=== PATIENT | male | born 1990 | race Caucasian/White ===

== ENCOUNTER 2024-06-25 08:44 | Emergency (ER) | payer BC, SELFPAY ==
[2024-06-25] VITALS (13 sets, daily range): BP systolic 126–161; BP diastolic 75–85; PULSE 65–76; RESP 7–20; TEMP 36.8–36.9; O2SAT 99–100; BMI 23.7
--- NOTE | 2024-06-25 08:58 | ED.ABDPAIN ---
HPI - Abdominal Pain General Chief Complaint: Abdominal Pain Stated Complaint: pancreatitis Time Seen by Provider: 06/25/24 08:53 History of Present Illness HPI narrative: 34-year-old male with history of Pat fundoplication and also gallbladder removal both done in [facility] 1 or 2 years ago, no longer taking regular antacids, complains of 2 days duration left upper quadrant abdominal discomfort. He tried [id number] liquid white generic r[employer] antacid, which did not help his symptoms. No nausea or vomiting. No fevers or chills. No injury or trauma or new activities. He had 3 beers a few days ago, otherwise no recent alcohol use, no recent NSAID use. No prior known kidney stones, no painful urination, no frequency of urination, no change in urine color. No diarrhea, no black or red stools. No history of colitis or diverticulitis recalled. Social history: Moved to [facility] April 2024, prior primary and GI/surgery healthcare in [facility]. Related Data Previous Rx's Medication Instructions Recorded pantoprazole 20 mg tablet,delayed 20 mg PO DAILY #30 tabs 06/25/24 release Allergies Allergy/AdvReac Type Severity Reaction Status Date / Time No Known Drug Allergies Allergy Verified 06/25/24 08:54 Review of Systems Review of Systems Narrative: see HPI Exam Narrative Exam Narrative: GENERAL: Well-developed patient, in mild distress. HEAD: Atraumatic. Normocephalic. EYES: Pupils equal round and reactive. Extraocular motions intact. No scleral icterus. No injection or drainage. ENT: Nose without bleeding, purulent drainage. Throat without erythema, tonsillar hypertrophy or exudate. Airway patent. NECK: Trachea midline. Non tender CARDIOVASCULAR: Regular rate and rhythm without murmurs, gallops, or rubs. RESPIRATORY: Clear to auscultation. Breath sounds equal bilaterally. No wheezes, rales, or rhonchi. GASTROINTESTINAL: Abdomen nondistended, mild tenderness left upper quadrant, more so than epigastrium, no obvious ventral hernias, no guarding or rebound tenderness, normal bowel tones EXTREMITIES: No edema or joint tenderness. BACK: Nontender without deformity or crepitance. No flank tenderness. NEURO: AOx3. Motor functions grossly nonfocal SKIN: No rash or erythema of visible areas Initial Vital Signs Initial Vital Signs: Vital Signs Pulse Rate 76 06/25/24 08:50 Pulse Oximetry 100 06/25/24 08:50 Course Orders Ordered: Discontinued Medications Al Hydrox/Mg Hydrox/Simethicone 20 ml/ Lidocaine HCl 15 ml 0 ml PO NOW ONE Stop: 06/25/24 09:09 Last Admin: 06/25/24 09:20 Dose: 35 ml Documented By: YINKA Hydromorphone HCl (Hydromorphone 0.5 Mg Inj) 0.5 mg IV NOW ONE Stop: 06/25/24 10:22 Last Admin: 06/25/24 10:52 Dose: 0.5 mg Documented By: YINKA Ondansetron HCl (Ondansetron 4 Mg/2 Ml Inj) 4 mg IV NOW ONE Stop: 06/25/24 10:22 Last Admin: 06/25/24 10:52 Dose: 4 mg Documented By: YINKA Pantoprazole Sodium (Pantoprazole 40 Mg Vial) 40 mg IV NOW ONE Stop: 06/25/24 09:12 Last Admin: 06/25/24 09:21 Dose: 40 mg Documented By: YINKA Vital Signs Vital signs: Vital Signs - 8 hr 06/25/24 08:50 06/25/24 08:51 06/25/24 08:51 Temperature Pulse Rate 76 72 Respiratory Rate Blood Pressure 138/76 Pulse Oximetry 100 99 Oxygen Delivery Method 06/25/24 08:54 06/25/24 09:00 06/25/24 09:00 Temperature 98.3 F Pulse Rate 65 71 Respiratory Rate 16 Blood Pressure 138/76 133/76 Pulse Oximetry 99 99 Oxygen Delivery Method Room Air 06/25/24 09:31 06/25/24 09:52 06/25/24 09:52 Temperature Pulse Rate 74 68 Respiratory Rate 18 Blood Pressure 131/79 Pulse Oximetry 100 100 Oxygen Delivery Method 06/25/24 10:00 06/25/24 10:00 06/25/24 10:14 Temperature Pulse Rate 66 Respiratory Rate 20 Blood Pressure 126/76 161/80 H Pulse Oximetry 100 Oxygen Delivery Method 06/25/24 10:14 06/25/24 10:30 06/25/24 10:30 Temperature Pulse Rate 68 68 Respiratory Rate 16 14 Blood Pressure 148/77 H Pulse Oximetry 99 99 Oxygen Delivery Method 06/25/24 10:59 06/25/24 10:59 06/25/24 11:00 Temperature Pulse Rate 66 67 Respiratory Rate 16 7 L Blood Pressure 133/85 Pulse Oximetry 99 99 Oxygen Delivery Method 06/25/24 11:00 Temperature Pulse Rate Respiratory Rate Blood Pressure 143/75 H Pulse Oximetry Oxygen Delivery Method MDM - Abdominal Pain Lab Data Attestation: I reviewed the patient's lab results. Lab results narrative: White blood cell count 8000, hemoglobin 14, platelets adequate. Basic metabolic panel unremarkable. Liver functions and lipase normal. 06/25/24 08:56 06/25/24 08:56 Labs: Lab Results 06/25/24 Range/Units 08:56 WBC 8.0 (4.5-11.0) X10^3/uL RBC 4.21 L (4.5-5.9) X10^6/uL Hgb 14.0 (13.5-17.5) g/dL Hct 41.0 (41-53) % MCV 97.3 (80-100) fL MCH 33.3 (26-34) PG MCHC 34.2 (30-36) % RDW 13.2 (11.6-14.8) % Plt Count 287 (150-400) X10^3/uL Neut % (Auto) 66.4 (50-75) % Lymph % (Auto) 25.7 (25-40) % Page % (Auto) 6.6 (3-14) % Eos % (Auto) 0.9 L (2-4) % Baso % (Auto) 0.4 (0-2) % Neut # (Auto) 5300 (7522-0842) /uL Lymph # (Auto) 2000 (6906-8856) /uL Page # (Auto) 500 (0-900) /uL Eos # (Auto) 100 (0-450) /uL Baso # (Auto) 0 (0-100) /uL Sodium 136 L (137-145) mmol/L Potassium 4.2 (3.4-5.1) mmol/L Chloride 105 (98-107) mmol/L Carbon Dioxide 24 (22-32) mmol/L BUN 11 (9-20) mg/dL Creatinine 0.62 L (0.66-1.25) mg/dL Estimated GFR > 60 (>60) mL/min BUN/Creatinine Ratio 17.7 (6-22) Glucose 136 H (70-100) mg/dL Calcium 9.2 (8.4-10.2) mg/dL Total Bilirubin 0.8 (0.2-1.3) mg/dL AST 40 (17-59) IU/L ALT 36 (<50) IU/L Alkaline Phosphatase 39 (38-126) U/L Total Protein 6.8 (6.3-8.2) g/dL Albumin 4.5 (3.5-5.0) g/dL Globulin 2.3 (1.7-4.1) g/dL Albumin/Globulin Ratio 2.0 (1.0-2.8) Lipase 53 (23-300) U/L Point of care testing: Urine Dip Bedside Urine Glucose Negative Bedside Urine Bilirubin - Negative Bedside Urine Ketone - Negative Urine Specific [employer] 1.005 Bedside Urine Occult Blood - Negative Bedside Urine pH 7.5 Bedside Urine Protein - Negative Bedside Urine Urobilinogen - Negative Bedside Urine Nitrite - Negative Bedside Urine Leukocytes - Negative Esterase Imaging Data Chest x-ray: Radiologist's Impression: [address] [address] XRay Report Signed Patient: Baldo Uribe MR#: [id number] : 1990 Acct:[id number] Age/Sex: 34 / M Date of Service: 06/25/24 Loc: ED Accession Number: [id number] Procedure: XR chest 2V Ordering Provider: Jon Garcia MD PROCEDURE: XR CHEST 2V INDICATIONS: upper abd chest pain, hx Pat fundoplic TECHNIQUE: 2 views of the chest were acquired. COMPARISON: None. FINDINGS: Surgical changes and devices: None. Lungs and pleura: Lungs are clear. No pleural effusions or pneumothorax. Mediastinum: Mediastinal contours are normal. Heart size is normal. Bones and chest wall: No suspicious bony abnormalities. Soft tissues appear unremarkable. IMPRESSION: No acute cardiopulmonary abnormality is seen. Dictated by: Sagar Todd M.D. on 06/25/2024 at 9:39 Approved by: Sagar Todd M.D. on 06/25/2024 at 9:39 CT chest abdomen and pelvis with IV contrast: Radiologist's Impression: Close Chest/Abdomen/Pelvis CT (Signed) Evan Ro - 06/25/24 Chest X-Ray (Signed) Sagar Todd - 06/25/[address] [address] [address] Scan Report Signed Patient: Baldo Uribe MR#: [id number] : 1990 Acct:[id number] Age/Sex: 34 / M Date of Service: 06/25/24 Loc: ED Accession Number: [id number] Procedure: CT chest abd pel w con Ordering Provider: Jon Garcia MD PROCEDURE: CT CHEST ABD PEL W CON INDICATIONS: LUQ abd pain, prior Pat fundoplication TECHNIQUE: After the administration of intravenous contrast, 5 mm thick sections acquired from the lung apices to the symphysis. 5 mm coronal and sagittal reformats were performed, with additional 7 mm MIP reformats through the lungs. For radiation dose reduction, the following was used: automated exposure control, adjustment of mA and/or kV according to patient size. COMPARISON: None. FINDINGS: Image quality: Excellent. CHEST: Lower Neck: No enlarged lymph nodes. Thyroid: No thyroid nodules which require sonographic follow up, per consensus guidelines. Axillae: No enlarged lymph nodes. Chest Wall: Unremarkable. Lungs and Pleura: No pneumothorax or pleural effusions. Accessory fissure in the right lower lobe with perifissural nodule measuring 5 millimeters, likely an intrapulmonary lymph node (2/208). Scattered pulmonary micro nodules measuring 3 millimeters or less. No suspicious pulmonary nodules. Heart: Heart size is normal. No pericardial effusion. Thoracic Vessels: The aorta and pulmonary arteries demonstrate normal size. Mediastinum and Surekha: No enlarged lymph nodes. Esophagus: No wall thickening. No hiatal hernia. ABDOMEN: Liver: No solid mass. Gallbladder: Surgically absent. Biliary ducts: No biliary dilation. Pancreas: No ductal dilation. Spleen: Size is within normal limits. Adrenal Glands: No adrenal nodules. Kidneys and Ureters: No hydronephrosis. No solid mass. No complex renal cystic lesion which requires follow up. Stomach and Bowel: Prior Driss fundoplication. Normal colonic caliber, without significant wall thickening. Normal appendix. Few small diverticula without evidence of diverticulitis. Peritoneum: No abnormal intraperitoneal fluid. No free air. Ventral Wall: No significant ventral hernia. Abdominal Nodes: No retroperitoneal or mesenteric adenopathy by size criteria. Vessels: Aorta and inferior vena cava are normal in size. PELVIS: Pelvic Organs: Unremarkable. Bladder: No bladder wall thickening, accounting for underdistention. Pelvic Nodes: No enlarged lymph nodes. Miscellaneous: No inguinal hernias are seen. Bones: No aggressive osseous abnormality. IMPRESSION: 1. No acute findings within the chest, abdomen or pelvis. 2. Prior Pat fundoplication. Status post cholecystectomy. 3. Few diverticula without evidence of acute diverticulitis. 4. Scattered pulmonary micro nodules measuring 3 millimeters or less, nonspecific. No suspicious pulmonary nodules. Dictated by: Evan Ro M.D. on 06/25/2024 at 11:17 Approved by: Evan Ro M.D. on 06/25/2024 at 11:25 [facility] Narrative Medical decision making narrative: 34-year-old male with history of Pat fundoplication and remote cholecystectomy 1 or 2 years ago in [place], now with 2 days duration left upper quadrant abdominal pain, no trauma. Afebrile, sirs screen negative. Mild tenderness epigastrium and left upper quadrant without distention, no guarding or rebound tenderness. DDx consider complication of Pat fundoplication, PUD, pancreatitis, choledocholithiasis, colitis, other. Screening chest x-ray ordered, labs pending. Labs unremarkable. Chest x-ray showed no acute changes, see radiology report. IV Protonix, GI cocktail, patient does not feel any better. We discussed imaging, he would like to proceed. CT chest abdomen and pelvis imaging with IV contrast. Keep NPO 2225, patient now would like pain medications, IV Dilaudid/Zofran. CT studies to be performed. Keep NPO. CT chest abdomen pelvis IV contrast, shows Pat repair, uncomplicated. No acute changes chest abdomen and pelvis. Incidental micro pulmonary nodules noted. CT report given to patient with discussion of these findings, importance of pulmonary nodule follow up discussed. Advised restart of PPI, we will send prescription for Protonix, he will follow up with GI at [facility]. Return precautions discussed. Discharged home, stable/improved Discharge Plan Departure Patient Disposition: Home Clinical Impression: Acute upper abdominal pain, History of Pat fundoplication, Multiple pulmonary nodules, Diverticulosis Activity Restrictions/Additional Instructions: Upper abdominal discomfort, history of remote cholecystectomy gallbladder removal, history of remote Pat fundoplication, no longer taking antacids regularly. Recent upper left abdominal discomfort. No response today to GI cocktail antacid/lidocaine swallow. CT chest abdomen and pelvis imaging was done, no acute changes noted. You did have incidental pulmonary micro nodules that will need further follow up as an outpatient with your regular doctor. Restart antacid, prescription pantoprazole/Protonix sent to your pharmacy. Follow up with Gastroenterology in [facility] as anticipated. Return to this/nearest emergency department for any change worsening symptoms or any concerns prior Prescriptions: New pantoprazole 20 mg tablet,delayed release (DR/EC) 20 mg PO DAILY Qty: 30 0RF Stand Alone Forms: Patient Portal/API/Survey
--- NOTE | 2024-06-25 09:09 | DI.RAD.S_ITS ---
PROCEDURE: XR CHEST 2V INDICATIONS: upper abd chest pain, hx Pat fundoplic TECHNIQUE: 2 views of the chest were acquired. COMPARISON: None. FINDINGS: Surgical changes and devices: None. Lungs and pleura: Lungs are clear. No pleural effusions or pneumothorax. Mediastinum: Mediastinal contours are normal. Heart size is normal. Bones and chest wall: No suspicious bony abnormalities. Soft tissues appear unremarkable. IMPRESSION: No acute cardiopulmonary abnormality is seen. Dictated by: Sagar Todd M.D. on 06/25/2024 at 9:39 Approved by: Sagar Todd M.D. on 06/25/2024 at 9:39
[2024-06-25] MEDS: MAG HYDROX/ALUMINUM/SIMETH SUS 20 ML, LIDOCAINE VISCOUS 2% 15 ML PO (09:20)
[2024-06-25] MEDS: PANTOPRAZOLE 40 MG VIAL IV (09:21)
[2024-06-25 09:24] LABS: Add Manual Diff / Slide Review NO; Basophils Absolute Auto 0 /uL (0-100); Basophils Percent Auto 0.4 % (0-2); Eosinophils Absolute Auto 100 /uL (0-450); Eosinophils Percent Auto 0.9 % (2-4); Lymphocytes Absolute Auto 2000 /uL (1100-4500); Lymphocytes Percent Auto 25.7 % (25-40); Mean Corpuscular HGB Conc 34.2 % (30-36); Mean Corpuscular Hemoglobin 33.3 PG (26-34); Mean Corpuscular Volume 97.3 fL (80-100); Monocytes Absolute Auto 500 /uL (0-900); Monocytes Percent Auto 6.6 % (3-14); Neutrophils Absolute Auto 5300 /uL (1500-7000); Neutrophils Percent Auto 66.4 % (50-75); Platelet Count 287 X10^3/uL (150-400); Red Blood Cell Count 4.21 X10^6/uL (4.5-5.9); Red Cell Distribution Width 13.2 % (11.6-14.8)
[2024-06-25 09:31] LABS: Alanine Aminotransferase 36 IU/L (<50); Albumin 4.5 g/dL (3.5-5.0); Alkaline Phosphatase 39 U/L (38-126); Aspartate Aminotransferase 40 IU/L (17-59); BUN Creatinine Ratio 17.7 (6-22); Bilirubin Total 0.8 mg/dL (0.2-1.3); Blood Urea Nitrogen 11 mg/dL (9-20); Calcium 9.2 mg/dL (8.4-10.2); Carbon Dioxide 24 mmol/L (22-32); Chloride 105 mmol/L (98-107); Estimated Glomerular Filt Rate > 60 mL/min (>60); Globulin 2.3 g/dL (1.7-4.1); Glucose 136 mg/dL (70-100); HEMOLYSIS < 15 (0-50); Lipase 53 U/L (23-300); Potassium 4.2 mmol/L (3.4-5.1); Sodium 136 mmol/L (137-145); Total Protein 6.8 g/dL (6.3-8.2)
--- NOTE | 2024-06-25 09:51 | DI.CT.S_ITS ---
PROCEDURE: CT CHEST ABD PEL W CON INDICATIONS: LUQ abd pain, prior Pat fundoplication TECHNIQUE: After the administration of intravenous contrast, 5 mm thick sections acquired from the lung apices to the symphysis. 5 mm coronal and sagittal reformats were performed, with additional 7 mm MIP reformats through the lungs. For radiation dose reduction, the following was used: automated exposure control, adjustment of mA and/or kV according to patient size. COMPARISON: None. FINDINGS: Image quality: Excellent. CHEST: Lower Neck: No enlarged lymph nodes. Thyroid: No thyroid nodules which require sonographic follow up, per consensus guidelines. Axillae: No enlarged lymph nodes. Chest Wall: Unremarkable. Lungs and Pleura: No pneumothorax or pleural effusions. Accessory fissure in the right lower lobe with perifissural nodule measuring 5 millimeters, likely an intrapulmonary lymph node (2/208). Scattered pulmonary micro nodules measuring 3 millimeters or less. No suspicious pulmonary nodules. Heart: Heart size is normal. No pericardial effusion. Thoracic Vessels: The aorta and pulmonary arteries demonstrate normal size. Mediastinum and Surekha: No enlarged lymph nodes. Esophagus: No wall thickening. No hiatal hernia. ABDOMEN: Liver: No solid mass. Gallbladder: Surgically absent. Biliary ducts: No biliary dilation. Pancreas: No ductal dilation. Spleen: Size is within normal limits. Adrenal Glands: No adrenal nodules. Kidneys and Ureters: No hydronephrosis. No solid mass. No complex renal cystic lesion which requires follow up. Stomach and Bowel: Prior Driss fundoplication. Normal colonic caliber, without significant wall thickening. Normal appendix. Few small diverticula without evidence of diverticulitis. Peritoneum: No abnormal intraperitoneal fluid. No free air. Ventral Wall: No significant ventral hernia. Abdominal Nodes: No retroperitoneal or mesenteric adenopathy by size criteria. Vessels: Aorta and inferior vena cava are normal in size. PELVIS: Pelvic Organs: Unremarkable. Bladder: No bladder wall thickening, accounting for underdistention. Pelvic Nodes: No enlarged lymph nodes. Miscellaneous: No inguinal hernias are seen. Bones: No aggressive osseous abnormality. IMPRESSION: 1. No acute findings within the chest, abdomen or pelvis. 2. Prior Pat fundoplication. Status post cholecystectomy. 3. Few diverticula without evidence of acute diverticulitis. 4. Scattered pulmonary micro nodules measuring 3 millimeters or less, nonspecific. No suspicious pulmonary nodules. Dictated by: Evan Ro M.D. on 06/25/2024 at 11:17 Approved by: Evan Ro M.D. on 06/25/2024 at 11:25
[2024-06-25] MEDS: ONDANSETRON 4 MG/2 ML INJ IV (10:52)
[2024-06-25] MEDS: HYDROMORPHONE 0.5 MG INJ IV (10:52)
== END 2024-06-25 11:48 | disposition home or self-care (01) ==
PROVIDERS: Emergency Provider Emergency Medicine
DX: R10.12 Left upper quadrant pain (principal); Z90.49 Acquired absence of other specified parts of digestive tract; Z98.890 Other specified postprocedural states; R91.8 Other nonspecific abnormal finding of lung field; K57.90 Diverticulosis of intestine, part unspecified, without perforation or abscess without bleeding
CPT/HCPCS: 36415; 71046; 71260; 74177; 80053; 81003; 83690; 85025; 96374; 96375; 99284; 99285; J1171; J2405; J2470; Q9967

== ENCOUNTER 2024-12-21 06:05 | Emergency (ER) | payer BC, SELFPAY ==
[2024-12-21 06:18] VITALS: BP 130/71; PULSE 82; RESP 17; TEMP 36.6; O2SAT 98; BMI 23.7
[2024-12-21 06:25] VITALS: PULSE 82; O2SAT 99
[2024-12-21 06:29] LABS: Add Manual Diff / Slide Review NO; Basophils Absolute Auto 0 /uL (0-100); Basophils Percent Auto 0.4 % (0-2); Eosinophils Absolute Auto 0 /uL (0-450); Eosinophils Percent Auto 0.3 % (2-4); Hematocrit 41.6 % (41-53); Hemoglobin 14.3 g/dL (13.5-17.5); Lymphocytes Absolute Auto 1200 /uL (1100-4500); Lymphocytes Percent Auto 9.1 % (25-40); Mean Corpuscular HGB Conc 34.5 % (30-36); Mean Corpuscular Hemoglobin 33.6 PG (26-34); Mean Corpuscular Volume 97.3 fL (80-100); Monocytes Absolute Auto 600 /uL (0-900); Monocytes Percent Auto 4.7 % (3-14); Neutrophils Absolute Auto 10800 /uL (1500-7000); Neutrophils Percent Auto 85.5 % (50-75); Platelet Count 301 X10^3/uL (150-400); Red Blood Cell Count 4.27 X10^6/uL (4.5-5.9); Red Cell Distribution Width 13.5 % (11.6-14.8); White Blood Cell Count 12.7 X10^3/uL (4.5-11.0)
[2024-12-21 06:30] VITALS: BP 117/62; PULSE 78; O2SAT 97
--- NOTE | 2024-12-21 06:31 | ED.GENADULT ---
HPI - General Adult <No Laurent MD - Last Filed: 12/22/24 04:16> General Chief complaint: Abdominal Pain Stated complaint: Vomiting, nausea, pain, had gastric surgery 3 yrs Time Seen by Provider: 12/21/24 06:23 Source: patient Mode of arrival: Ambulatory History of Present Illness HPI narrative: 34-year-old young man with a history of bipolar disorder, Pat fundoplication with concurrent cholecystectomy approximately 3 years ago presents after being awoken abruptly from sleep 3:00 a.m. this morning with severe abdominal pain associated with vomiting and diarrhea. Continues to have crampy mid abdominal pain. No fevers, there was no blood in either the emesis or the diarrhea earlier this evening. He has never had similar findings. No headaches or palpitations. Yesterday he was at his baseline with no symptoms whatsoever Related Data Previous Rx's ?Medication ?Instructions ?Recorded pantoprazole 20 mg tablet,delayed 20 mg PO DAILY #30 tabs 06/25/24 release hydrocodone 5 mg-acetaminophen 325 1 tab PO Q6H PRN pain #7 tabs 12/21/24 mg tablet ondansetron 4 mg disintegrating 4 mg PO Q6H PRN nausea and 12/21/24 tablet vomiting #20 tabs pantoprazole 40 mg tablet,delayed 40 mg PO DAILY #30 tabs 12/21/24 release (Protonix) sucralfate 1 gram tablet (Carafate) 1 g PO QAC #20 tabs 12/21/24 Allergies Allergy/AdvReac Type Severity Reaction Status Date / Time No Known Drug Allergies Allergy Verified 06/25/24 08:54 Review of Systems <No Laurent MD - Last Filed: 12/22/24 04:16> Review of Systems Narrative: Pertinent positive and negative findings as per HPI Patient History <No Laurent MD - Last Filed: 12/22/24 04:16> Medical History (Updated 12/21/24 @ 08:09 by Yoshi Lomax MD) Bipolar disorder Surgical History (Updated 12/21/24 @ 06:33 by No Laurent MD) History of cholecystectomy History of Pat fundoplication tobacco type: vaping Exam <No Laurent MD - Last Filed: 12/22/24 04:16> Initial Vital Signs Initial Vital Signs: Vital Signs Temperature 97.8 F 12/21/24 06:18 Pulse Rate 82 12/21/24 06:18 Respiratory Rate 17 12/21/24 06:18 Blood Pressure 130/71 12/21/24 06:18 Pulse Oximetry 98 12/21/24 06:18 Oxygen Delivery Method Room Air 12/21/24 06:18 General: Healthy appearing, in moderate pain but Able to give a complete and coherent history. Well-nourished well-developed HEENT: Moist mucous membranes, normal sclera with reactive pupils, Respiratory: Lungs are clear to auscultation, no wheezing no rales no rhonchi. Full and symmetrical air movement Cardiac: Regular rate and rhythm no murmurs no bruits Abdomen: Soft, tender in the periumbilical to epigastric tenderness. Minor right flank pain. He does not have an acute surgical abdomen Skin: Warm and dry, no rashes Neurologic: Grossly neurologically intact with no obvious asymmetries or abnormalities Extremities: No trauma, well perfused Psych: Cooperative, appropriate insight and affect <Yoshi Lomax MD - Last Filed: 12/21/24 08:24> Initial Vital Signs Initial Vital Signs: Vital Signs Temperature 97.8 F 12/21/24 06:18 Pulse Rate 82 12/21/24 06:18 Respiratory Rate 17 12/21/24 06:18 Blood Pressure 130/71 12/21/24 06:18 Pulse Oximetry 98 12/21/24 06:18 Oxygen Delivery Method Room Air 12/21/24 06:18 Course <No Laurent MD - Last Filed: 12/22/24 04:16> Orders Ordered: Discontinued Medications Acetaminophen (Acetaminophen 325 Mg Tablet) 975 mg PO NOW ONE Stop: 12/21/24 08:06 Last Admin: 12/21/24 08:11 Dose: 975 mg Documented By: WALTER Al Hydrox/Mg Hydrox/Simethicone 20 ml/ Lidocaine HCl 15 ml 0 ml PO NOW ONE Stop: 12/21/24 07:31 Last Admin: 12/21/24 07:37 Dose: 35 ml Documented By: WALTER Sodium Chloride (Normal Saline 0.9%) 1,000 mls @ 1,000 mls/hr IV BOLUS ONE Stop: 12/21/24 08:30 Last Admin: 12/21/24 07:38 Dose: 1,000 mls/hr Documented By: WALTER Ondansetron HCl (Ondansetron 4 Mg/2 Ml Inj) 4 mg IV NOW PRN PRN Reason: Nausea And Vomiting Ondansetron HCl (Ondansetron 4 Mg Odt) 4 mg PO NOW PRN PRN Reason: Nausea And Vomiting Pantoprazole Sodium (Pantoprazole 40 Mg Vial) 40 mg IV NOW ONE Stop: 12/21/24 07:31 Last Admin: 12/21/24 07:37 Dose: 40 mg Documented By: WALTER Vital Signs Vital signs: Vital Signs - 8 hr 12/21/24 06:18 Temperature 97.8 F Pulse Rate 82 Respiratory Rate 17 Blood Pressure 130/71 Pulse Oximetry 98 Oxygen Delivery Method Room Air <Yoshi Lomax MD - Last Filed: 12/21/24 08:24> Orders Ordered: Discontinued Medications Acetaminophen (Acetaminophen 325 Mg Tablet) 975 mg PO NOW ONE Stop: 12/21/24 08:06 Last Admin: 12/21/24 08:11 Dose: 975 mg Documented By: WALTER Al Hydrox/Mg Hydrox/Simethicone 20 ml/ Lidocaine HCl 15 ml 0 ml PO NOW ONE Stop: 12/21/24 07:31 Last Admin: 12/21/24 07:37 Dose: 35 ml Documented By: WALTER Sodium Chloride (Normal Saline 0.9%) 1,000 mls @ 1,000 mls/hr IV BOLUS ONE Stop: 12/21/24 08:30 Last Admin: 12/21/24 07:38 Dose: 1,000 mls/hr Documented By: WALTER Ondansetron HCl (Ondansetron 4 Mg/2 Ml Inj) 4 mg IV NOW PRN PRN Reason: Nausea And Vomiting Ondansetron HCl (Ondansetron 4 Mg Odt) 4 mg PO NOW PRN PRN Reason: Nausea And Vomiting Pantoprazole Sodium (Pantoprazole 40 Mg Vial) 40 mg IV NOW ONE Stop: 12/21/24 07:31 Last Admin: 12/21/24 07:37 Dose: 40 mg Documented By: WALTER Vital Signs Vital signs: Vital Signs - 8 hr 12/21/24 06:18 Temperature 97.8 F Pulse Rate 82 Respiratory Rate 17 Blood Pressure 130/71 Pulse Oximetry 98 Oxygen Delivery Method Room Air Medical Decision Making <No Laurent MD - Last Filed: 12/22/24 04:16> Lab Data 12/21/24 06:22 12/21/24 06:22 Labs: Lab Results 12/21/24 Range/Units 06:22 WBC 12.7 H (4.5-11.0) X10^3/uL RBC 4.27 L (4.5-5.9) X10^6/uL Hgb 14.3 (13.5-17.5) g/dL Hct 41.6 (41-53) % MCV 97.3 (80-100) fL MCH 33.6 (26-34) PG MCHC 34.5 (30-36) % RDW 13.5 (11.6-14.8) % Plt Count 301 (150-400) X10^3/uL Neut % (Auto) 85.5 H (50-75) % Lymph % (Auto) 9.1 L (25-40) % [place] % (Auto) 4.7 (3-14) % Eos % (Auto) 0.3 L (2-4) % Baso % (Auto) 0.4 (0-2) % Neut # (Auto) 45433 H (4777-2090) /uL Lymph # (Auto) 1200 (0345-0885) /uL [place] # (Auto) 600 (0-900) /uL Eos # (Auto) 0 (0-450) /uL Baso # (Auto) 0 (0-100) /uL Sodium 139 (137-145) mmol/L Potassium 4.3 (3.4-5.1) mmol/L Chloride 105 (98-107) mmol/L Carbon Dioxide 26 (22-32) mmol/L BUN 6 L (9-20) mg/dL Creatinine 0.74 (0.66-1.25) mg/dL Estimated GFR > 60 (>60) mL/min BUN/Creatinine Ratio 8.1 (6-22) Glucose 103 H (70-99) mg/dL Calcium 9.5 (8.4-10.2) mg/dL Total Bilirubin 1.1 (0.2-1.3) mg/dL AST 36 (17-59) IU/L ALT 26 (<50) IU/L Alkaline Phosphatase 46 (38-126) U/L Total Protein 7.3 (6.3-8.2) g/dL Albumin 4.8 (3.5-5.0) g/dL Globulin 2.5 (1.7-4.1) g/dL Albumin/Globulin Ratio 1.9 (1.0-2.8) Lipase 40 (23-300) U/L MDM Narrative Medical decision making narrative: CC: Acute onset abdominal pain with associated nausea and vomiting Complicating co-morbidities: Prior Pat fundoplication, bipolar disorder Data collected from: patient Differential considered: Internal hernia, bowel obstruction, acute appendicitis, pancreatitis Exam documented above, pertinent findings include: Appears uncomfortable, heart and lungs are benign, upper abdomen to the left upper quadrant tenderness mild right flank pain Lab Test results independently reviewed as above. Pertinent findings: CBC shows mild leukocytosis at 12.7 with 85.5% neutrophils no anemia Independently reviewed EKG: Imaging studies independently reviewed: Consultations: Treatments: Re-evaluations: Discussion: <Yoshi Lomax MD - Last Filed: 12/21/24 08:24> Lab Data Labs: Lab Results 12/21/24 Range/Units 06:22 WBC 12.7 H (4.5-11.0) X10^3/uL RBC 4.27 L (4.5-5.9) X10^6/uL Hgb 14.3 (13.5-17.5) g/dL Hct 41.6 (41-53) % MCV 97.3 (80-100) fL MCH 33.6 (26-34) PG MCHC 34.5 (30-36) % RDW 13.5 (11.6-14.8) % Plt Count 301 (150-400) X10^3/uL Neut % (Auto) 85.5 H (50-75) % Lymph % (Auto) 9.1 L (25-40) % [place] % (Auto) 4.7 (3-14) % Eos % (Auto) 0.3 L (2-4) % Baso % (Auto) 0.4 (0-2) % Neut # (Auto) 09752 H (4475-9080) /uL Lymph # (Auto) 1200 (3703-6729) /uL [place] # (Auto) 600 (0-900) /uL Eos # (Auto) 0 (0-450) /uL Baso # (Auto) 0 (0-100) /uL Sodium 139 (137-145) mmol/L Potassium 4.3 (3.4-5.1) mmol/L Chloride 105 (98-107) mmol/L Carbon Dioxide 26 (22-32) mmol/L BUN 6 L (9-20) mg/dL Creatinine 0.74 (0.66-1.25) mg/dL Estimated GFR > 60 (>60) mL/min BUN/Creatinine Ratio 8.1 (6-22) Glucose 103 H (70-99) mg/dL Calcium 9.5 (8.4-10.2) mg/dL Total Bilirubin 1.1 (0.2-1.3) mg/dL AST 36 (17-59) IU/L ALT 26 (<50) IU/L Alkaline Phosphatase 46 (38-126) U/L Total Protein 7.3 (6.3-8.2) g/dL Albumin 4.8 (3.5-5.0) g/dL Globulin 2.5 (1.7-4.1) g/dL Albumin/Globulin Ratio 1.9 (1.0-2.8) Lipase 40 (23-300) U/L Imaging Data CT scan - abdomen/pelvis: Radiologist's Impression: [place] [address] CT Scan Report Signed Patient: Baldo Uribe MR#: [id number] : 1990 Acct:[id number] Age/Sex: 34 / M Date of Service: 12/21/24 Loc: ED Accession Number: [id number] Procedure: CT abdomen pelvis w con Ordering Provider: No Laurent MD PROCEDURE: CT ABDOMEN PELVIS W CON INDICATIONS: acute abdominal pain TECHNIQUE: After the administration of intravenous contrast, axial sections acquired from the lung bases to the pubic symphysis. Coronal and sagittal reformats were performed. For radiation dose reduction, the following was used: automated exposure control, adjustment of mA and/or kV according to patient size. COMPARISON: [facility], CT, CT CHEST ABD PEL W CON, 06/25/2024, 10:06. FINDINGS: Image quality: Diagnostic Lower chest: Unremarkable lung bases Normal heart size. Fundoplication changes Liver: Unremarkable Gallbladder and biliary system: Cholecystectomy clips, nondilated Pancreas: No ductal dilation Spleen: Nonenlarged Adrenals: No discrete nodules Kidneys: No solid mass. No hydronephrosis. Vessels and lymph nodes: The main portal vein appears patent. No abdominal aortic aneurysm. No lymphadenopathy by size criteria. Bowel and peritoneum: No acute small bowel obstruction. Moderate fecal loading and rectal gas is present. No drainable abscess or ascites. The appendix appears nondilated Body wall: Unremarkable Pelvis: Under distended urinary bladder. Heterogeneous prostate enhancement, nonspecific, not well assessed on CT Bones: No aggressive appearing osseous abnormality. IMPRESSION: No acute abdominal pelvic abnormality. Moderate fecal loading and rectal gas. No small bowel obstruction. No significant changes from the preliminary report. Dictated by: Kemar Bender M.D. on 12/21/2024 at 7:50 Approved by: Kemar Bender M.D. on 12/21/2024 at 7:53 MDM Narrative Medical decision making narrative: CC: Acute onset abdominal pain with associated nausea and vomiting Complicating co-morbidities: Prior Pat fundoplication, bipolar disorder Data collected from: patient Differential considered: Internal hernia, bowel obstruction, acute appendicitis, pancreatitis Exam documented above, pertinent findings include: Appears uncomfortable, heart and lungs are benign, upper abdomen to the left upper quadrant tenderness mild right flank pain Lab Test results independently reviewed as above. Pertinent findings: CBC shows mild leukocytosis at 12.7 with 85.5% neutrophils no anemia, sodium 139 potassium 4.3 AST 36 ALT 26 lipase 40 Independently reviewed EKG: None indicated at this time, pain is reproducible epigastric palpation Imaging studies independently reviewed: CT abdomen pelvis no acute finding Consultations: None indicated at this time Re-evaluations: 7:28 p.m. patient was sleeping. Awoke him over results. At this time laboratory studies imaging are reassuring. This could be gastritis. Patient states he has had a lot of stressors recently. He had this sent from complication 3 years ago in [facility]. Has had off and on discomfort since then. He does have family doctor to follow up with did referral to GI for EGD. Patient had a fundoplication for esophagitis and reflux. At this time will provide GI cocktail Protonix, patient agrees. Work note will be provided here prescriptions provided. He is not on any antacids. Return precautions reviewed. He desires discharge home. There is periumbilical epigastric tenderness on palpation. 8:08 a.m.. Patient states abdominal pain is better after GI cocktail. He is concerned if the pain returns. Short course of pain medication will be provided. He does have a family doctor to follow up with. Return precautions reviewed. He desires discharge home Discussion: Appropriate for discharge home. Exam is reassuring. Return precautions reviewed. Pain is controlled. Likely gastritis/has reflux due to stress in his life recently. Return precautions reviewed. He desires discharge home. December 21, 2024 at 7:[address] Lomax: Sign-out from Dr. Reza. CT imaging is pending. Pain is controlled this time. Laboratory studies are reassuring. Discharge Plan Departure Patient Disposition: Home Clinical Impression: Abdominal pain Qualifiers: Abdominal location: epigastric Qualified Code(s): R10.13 - Epigastric pain Instructions: DI for Abdominal Pain-Adult Activity Restrictions/Additional Instructions: It is possible that you are developing gastritis/ulcer of the stomach. You will need your family doctor to schedule you to see certified green building engineer for endoscopy your stomach. No fried fatty greasy foods spicy foods or carbonated drinks. Keep well hydrated. Prescriptions have been provided for you and printed for you. Work note has been provided for you. Return if worse if any questions or concerns Prescriptions: New hydrocodone-acetaminophen 5-325 mg tablet 1 tab PO Q6H PRN (Reason: pain) Qty: 7 0RF sucralfate [Carafate] 1 gram tablet 1 g PO QAC Qty: 20 0RF pantoprazole [Protonix] 40 mg tablet,delayed release (DR/EC) 40 mg PO DAILY Qty: 30 0RF ondansetron 4 mg tablet,disintegrating 4 mg PO Q6H PRN (Reason: nausea and vomiting) Qty: 20 0RF No Action pantoprazole 20 mg tablet,delayed release (DR/EC) 20 mg PO DAILY Qty: 30 0RF Stand Alone Forms: Patient Portal/API, Work Release Note
--- NOTE | 2024-12-21 06:37 | DI.CT.S_ITS ---
PROCEDURE: CT ABDOMEN PELVIS W CON INDICATIONS: acute abdominal pain TECHNIQUE: After the administration of intravenous contrast, axial sections acquired from the lung bases to the pubic symphysis. Coronal and sagittal reformats were performed. For radiation dose reduction, the following was used: automated exposure control, adjustment of mA and/or kV according to patient size. COMPARISON: [facility], CT, CT CHEST ABD PEL W CON, 06/25/2024, 10:06. FINDINGS: Image quality: Diagnostic Lower chest: Unremarkable lung bases Normal heart size. Fundoplication changes Liver: Unremarkable Gallbladder and biliary system: Cholecystectomy clips, nondilated Pancreas: No ductal dilation Spleen: Nonenlarged Adrenals: No discrete nodules Kidneys: No solid mass. No hydronephrosis. Vessels and lymph nodes: The main portal vein appears patent. No abdominal aortic aneurysm. No lymphadenopathy by size criteria. Bowel and peritoneum: No acute small bowel obstruction. Moderate fecal loading and rectal gas is present. No drainable abscess or ascites. The appendix appears nondilated Body wall: Unremarkable Pelvis: Under distended urinary bladder. Heterogeneous prostate enhancement, nonspecific, not well assessed on CT Bones: No aggressive appearing osseous abnormality. IMPRESSION: No acute abdominal pelvic abnormality. Moderate fecal loading and rectal gas. No small bowel obstruction. No significant changes from the preliminary report. Dictated by: Kemar Bender M.D. on 12/21/2024 at 7:50 Approved by: Kemar Bender M.D. on 12/21/2024 at 7:53
[2024-12-21 06:40] LABS: Alanine Aminotransferase 26 IU/L (<50); Albumin 4.8 g/dL (3.5-5.0); Albumin Globulin Ratio 1.9 (1.0-2.8); Alkaline Phosphatase 46 U/L (38-126); Aspartate Aminotransferase 36 IU/L (17-59); BUN Creatinine Ratio 8.1 (6-22); Bilirubin Total 1.1 mg/dL (0.2-1.3); Blood Urea Nitrogen 6 mg/dL (9-20); Calcium 9.5 mg/dL (8.4-10.2); Carbon Dioxide 26 mmol/L (22-32); Chloride 105 mmol/L (98-107); Estimated Glomerular Filt Rate > 60 mL/min (>60); Globulin 2.5 g/dL (1.7-4.1); Glucose 103 mg/dL (70-99); HEMOLYSIS < 15 (0-50); Lipase 40 U/L (23-300); Potassium 4.3 mmol/L (3.4-5.1); Sodium 139 mmol/L (137-145); Total Protein 7.3 g/dL (6.3-8.2)
[2024-12-21] MEDS: PANTOPRAZOLE 40 MG VIAL IV (07:37)
[2024-12-21] MEDS: MAG HYDROX/ALUMINUM/SIMETH SUS 20 ML, LIDOCAINE VISCOUS 2% 15 ML PO (07:37)
[2024-12-21] MEDS: SODIUM CHLORIDE 0.9% 1,000 ML 1000 ML IV (07:38)
[2024-12-21] MEDS: ACETAMINOPHEN 325 MG TABLET 975 MG PO (08:11)
[2024-12-21 08:16] VITALS: PULSE 70; RESP 14; O2SAT 97
== END 2024-12-21 08:30 | disposition home or self-care (01) ==
PROVIDERS: Emergency Medicine; Emergency Provider Emergency Medicine
DX: R10.13 Epigastric pain (principal); R19.7 Diarrhea, unspecified; R11.2 Nausea with vomiting, unspecified
CPT/HCPCS: 74177; 80053; 83690; 85025; 96361; 96374; 99284; J2470; Q9967

== ENCOUNTER 2025-01-24 20:34 | Emergency (ER) | payer BC, SELFPAY ==
[2025-01-24 20:49] VITALS: BP 149/95; PULSE 63; RESP 18; TEMP 36.9; O2SAT 99; BMI 23.7
[2025-01-24 22:16] VITALS: PULSE 65; O2SAT 97
[2025-01-24 22:30] VITALS: BP 138/91; PULSE 56; RESP 18; O2SAT 99
[2025-01-24 22:31] VITALS: BP 138/91; PULSE 64; O2SAT 98
[2025-01-24 23:00] VITALS: BP 147/80; PULSE 55; O2SAT 99
[2025-01-24 23:30] VITALS: BP 131/81; PULSE 64; O2SAT 99
[2025-01-25] VITALS: BP 128/70; PULSE 67; O2SAT 91
[2025-01-25 00:30] VITALS: BP 128/75; PULSE 70; O2SAT 99
--- NOTE | 2025-01-25 00:39 | ED_ITS ---
HPI - Head Injury General Chief complaint: Head Injury Stated complaint: Head trauma x2days, Pain, Nausea, forgetful Time Seen by Provider: 01/24/25 23:21 Source: patient Mode of arrival: Ambulatory History of Present Illness HPI Narrative: Patient is a 35-year-old male without any significant past medical history coming into the ED from home for evaluation of brain fog, headache, nausea, states that on Friday he hit the top of his head, states that he hit it on a hitch when he was at work, he states that he work at [employer] states that since then he has been having mild headache brain fog nausea but no vomiting no visual disturbances, states that he took 2 g of Tylenol over the past 6 hours no change in his symptoms therefore decided come into the ED for further evaluation treatment. Patient denies any other symptoms at this time. NIH of 0 no focal deficits Related Data Previous Rx's ?Medication ?Instructions ?Recorded pantoprazole 20 mg tablet,delayed 20 mg PO DAILY #30 t abs 06/25/24 release hydrocodone 5 mg-acetaminophen 325 1 tab PO Q6H PRN pa in #7 tabs 12/21/24 mg tablet ondansetron 4 mg disintegrating 4 mg PO Q6H PRN nausea and 12/21/24 tablet vomiting #20 tabs pantoprazole 40 mg tablet,delayed 40 mg PO DAILY #30 t abs 12/21/24 release (Protonix) sucralfate 1 gram tablet (Carafate) 1 g PO QAC #20 tab s 12/21/24 Allergies Allergy/AdvReac Type Severity Reaction Status Date / Time No Known Drug Allergies Allergy Verified 01/24/25 20:52 Review of Systems Review of Systems Narrative: General: Denies fever, chills, weight loss HEENT: Positive headache, denies eye drainage, eye irritation, head trauma, sore throat, voice change Cardiovascular: Denies any chest pain, palpitations, tachycardia Respiratory: Denies any shortness of breath, cough, wheeze, stridor GI/: Denies any abdominal pain, nausea, vomiting, diarrhea, bright red blood per rectum, melanotic stools, urinary frequency, urinary retention, dysuria, hematuria MSK: Denies any joint pain, muscle pains, swelling Skin: Denies any rashes, lesions, discoloration Neuro: Denies any headache, lightheadedness, dizziness, fainting, weakness Psych: Denies SI/HI Patient History Medical History (Updated 01/25/25 @ 00:57 by Cheko Gamble DO) Bipolar disorder Surgical History (Updated 12/21/24 @ 06:33 by No Laurent MD) History of cholecystectomy History of Pat fundoplication Smoking Status: Current every day smoker tobacco type: vaping Exam Narrative Exam Narrative: General: Cooperative, well-developed, not in acute distress HEENT: Normocephalic, atraumatic, PERRLA, normal sclera, eyelids normal Neck: Active full range of motion, atraumatic Chest: Normal to inspection, negative crepitus, no overlying erythema ecchymosis Respiratory: Normal respiratory effort, not in acute respiratory distress, clear to auscultation bilaterally negative cough, wheeze, tachypnea, rhonchi, rales Cardiology: Regular rate rhythm negative gallop, murmur, rubs GI/: No tenderness to palpation, soft, non rigid, normal to inspection, exam deferred MSK: Full active range of motion in all 4 extremities, atraumatic, no tenderness to palpation of any bony prominences Skin: No rashes or lesions noted Neuro: NIH of 0 no focal deficits Alert awake oriented x3, moves all 4 extremities spontaneously, cranial nerves intact, able to answer all questions appropriately follows commands appropriately Psych: Cooperative, negative suicidal or homicidal ideations Initial Vital Signs Initial Vital Signs: Vital Signs Temperature 98.5 F 01/24/25 20:49 Pulse Rate 63 01/24/25 20:49 Respiratory Rate 18 01/24/25 20:49 Blood Pressure 149/95 H 01/24/25 20:49 Pulse Oximetry 99 01/24/25 20:49 Oxygen Delivery Method Room Air 01/24/25 20:49 Course Orders Ordered: ED Orders 01/25/25 00:55 CT head/brain wo con Stat Discontinued Medications Acetaminophen (Acetaminophen 325 Mg Tablet) 650 mg PO NOW ONE Stop: 01/25/25 00:56 Last Admin: 01/25/25 01:02 Dose: 650 mg Dexamethasone (Dexamethasone 10 Mg/Ml Vial) 10 mg PO NOW ONE Stop: 01/25/25 00:56 Last Admin: 01/25/25 01:02 Dose: 10 mg Diphenhydramine HCl (Diphenhydramine 25 Mg Tablet) 25 mg PO NOW ONE Stop: 01/25/25 00:56 Last Admin: 01/25/25 01:02 Dose: 25 mg Metoclopramide HCl (Metoclopramide Hcl 5 Mg Tablet) 10 mg PO NOW ONE Stop: 01/25/25 00:56 Last Admin: 01/25/25 01:05 Dose: 10 mg Vital Signs Vital signs: Vital Signs - 8 hr 01/24/25 20:49 01/24/25 22:16 01/24/25 22:30 Temperature 98.5 F Pulse Rate 63 65 56 L Respiratory Rate 18 18 Blood Pressure 149/95 H 138/91 H Pulse Oximetry 99 97 99 Oxygen Delivery Method Room Air Room Air MDM - Head Injury Differential Diagnosis Differential diagnosis: Likely concussion without loss of consciousness, closed head injury and postconcussion syndrome Imaging Data CT scan - head: Radiologist's Impression: [address] [address] [address] Scan Report Signed Patient: Baldo Uribe MR#: [id number] : 1990 Acct:[id number] Age/Sex: 35 / M Date of Service: 01/25/25 Loc: ED Accession Number: [id number] Procedure: CT head/brain wo con Ordering Provider: Cheko Gamble D.O. PROCEDURE: CT HEAD/BRAIN WO CON INDICATIONS: Trauma, brain fog (hit top of head) TECHNIQUE: Noncontrast 4.5 mm thick angled axial sections acquired from the foramen magnum to the vertex, with coronal and sagittal reformats. For radiation dose reduction, the following was used: automated exposure control, adjustment of mA and/or kV according to patient size. COMPARISON: None. FINDINGS: Image quality: Diagnostic. CSF spaces: Basal cisterns are patent. No extra-axial fluid collections. Ventricles are normal in size and shape. Brain: No midline shift. No intracranial mass effect or hemorrhage. Ovalle- white matter interface is normal. Skull and face: Calvarium and visualized facial bones are intact, without suspicious lesions. Sinuses: Visualized sinuses and mastoids are clear. IMPRESSION: No acute intracranial pathology. MDM Narrative Medical decision making narrative: Patient without any pertinent past medical history coming into the ED from home for evaluation of headache, brain fog, nausea states started on Friday after he hit his head at work on a hitch, no LOC not on any blood thinners states that since then has been having some mild nausea brain fog but otherwise no visual disturbances no other symptoms. At time of evaluation NIH of 0 no focal deficits, patient received CT scan and medication here with improvement of symptoms, CT scan without any acute findings, symptoms more likely secondary to concussion, patient was given strict return precautions verbalized understanding of being discharged home with outpatient follow up Discharge Plan Departure Patient Disposition: Home Clinical Impression: Closed head injury Instructions: Concussion, DI for Closed Head Injury Activity Restrictions/Additional Instructions: Please follow up with your primary care doctor as needed Please read the discharge instructions sheet carefully and bring all papers to all doctor follow-up visits, as it may contain information that your doctor may want to see. Disease processes change and evolve, if your symptoms worsen or if you develop any new symptoms that are concerning to you please return for evaluation. Your evaluation today does not show any evidence of any life- threatening/serious illnesses requiring admission to the hospital or surgery. Please follow-up with your doctor for re-evaluation in approximately 1 day. Seek immediate medical attention for any worrisome symptoms. *If you do not have a primary care provider please contact the [facility] Resource line at [phone]. They will ask some questions about your medical history and help get you set up with a doctor in the community. Prescriptions: No Action pantoprazole 20 mg tablet,delayed release (DR/EC) 20 mg PO DAILY Qty: 30 0RF hydrocodone-acetaminophen 5-325 mg tablet 1 tab PO Q6H PRN (Reason: pain) Qty: 7 0RF sucralfate [Carafate] 1 gram tablet 1 g PO QAC Qty: 20 0RF pantoprazole [Protonix] 40 mg tablet,delayed release (DR/EC) 40 mg PO DAILY Qty: 30 0RF ondansetron 4 mg tablet,disintegrating 4 mg PO Q6H PRN (Reason: nausea and vomiting) Qty: 20 0RF Stand Alone Forms: Patient Portal/API
--- NOTE | 2025-01-25 00:55 | DI.CT.S_ITS ---
PROCEDURE: CT HEAD/BRAIN WO CON INDICATIONS: Trauma, brain fog (hit top of head) TECHNIQUE: Noncontrast 4.5 mm thick angled axial sections acquired from the foramen magnum to the vertex, with coronal and sagittal reformats. For radiation dose reduction, the following was used: automated exposure control, adjustment of mA and/or kV according to patient size. COMPARISON: None. FINDINGS: Image quality: Diagnostic. CSF spaces: Basal cisterns are patent. No extra-axial fluid collections. Ventricles are normal in size and shape. Brain: No midline shift. No intracranial mass effect or hemorrhage. Ovalle- white matter interface is normal. Skull and face: Calvarium and visualized facial bones are intact, without suspicious lesions. Sinuses: Visualized sinuses and mastoids are clear. IMPRESSION: No acute intracranial pathology. Dictated by: Rob Draper M.D. on 01/25/2025 at 1:24 Approved by: Rob Draper M.D. on 01/25/2025 at 1:25
[2025-01-25 01:00] VITALS: BP 136/78; PULSE 62; O2SAT 99
[2025-01-25] MEDS: DEXAMETHASONE 10 MG/ML VIAL PO (01:02)
[2025-01-25] MEDS: ACETAMINOPHEN 325 MG TABLET 650 MG PO (01:02)
[2025-01-25] MEDS: diphenhydrAMINE 25 MG TABLET PO (01:02)
[2025-01-25] MEDS: METOCLOPRAMIDE HCL 5 MG TABLET 10 MG PO (01:05)
[2025-01-25 01:30] VITALS: PULSE 56; O2SAT 98
== END 2025-01-25 01:40 | disposition home or self-care (01) ==
PROVIDERS: Emergency Provider Student in an Organized Health Care Education/Training Program
DX: S09.90XA Unspecified injury of head, initial encounter (principal); R51.9 Headache, unspecified; W22.8XXA Striking against or struck by other objects, initial encounter
CPT/HCPCS: 70450; 99283; 99284; J1100

== ENCOUNTER 2025-02-01 10:05 | Emergency (ER) | payer BC, SELFPAY ==
[2025-02-01 10:17] VITALS: BP 125/78; PULSE 88; RESP 18; TEMP 36.9; O2SAT 100; BMI 24.5
--- NOTE | 2025-02-01 11:48 | ED_ITS ---
HPI - Headache General Chief Complaint: Headache Stated Complaint: Follow up on his concussion x 2 weeks ago Time Seen by Provider: 02/01/25 11:13 Mode of arrival: Ambulatory History of Present Illness HPI Narrative: 35-year-old male presents to the ED with symptoms of postconcussion syndrome including headache, nausea, fatigue, brain fog. Patient was seen in the ED on 01/25/2025 for a head injury, discharged home with supportive care. Patient states that since then, he sustained 2 other closed head injuries when he accidentally bumped his head against some metal objects. Patient works at [employer]. Patient is complaining of symptoms including a headache, nausea, brain fog, fatigue. No fever, chills, chest pain, shortness of breath, vomiting, lightheadedness, dizziness, syncope. Patient unable to take ibuprofen due to an ulcer. Has taken Tylenol yesterday without much relief. Endorses 12/14 headache. Related Data Previous Rx's ?Medication ?Instructions ?Recorded pantoprazole 20 mg tablet,delayed 20 mg PO DAILY #30 t abs 06/25/24 release hydrocodone 5 mg-acetaminophen 325 1 tab PO Q6H PRN pa in #7 tabs 12/21/24 mg tablet ondansetron 4 mg disintegrating 4 mg PO Q6H PRN nausea and 12/21/24 tablet vomiting #20 tabs pantoprazole 40 mg tablet,delayed 40 mg PO DAILY #30 t abs 12/21/24 release (Protonix) sucralfate 1 gram tablet (Carafate) 1 g PO QAC #20 tab s 12/21/24 Allergies Allergy/AdvReac Type Severity Reaction Status Date / Time No Known Drug Allergies Allergy Verified 01/24/25 20:52 Review of Systems Constitutional Constitutional: Denies chills, Reports fatigue, Denies fever(s), Denies frequent falls, Reports headache(s), Denies lethargy and Denies weakness Eyes Eyes: Reports blurry vision, Denies change in vision, Denies eye discharge, Denies irritation and Denies loss of vision ENT Ears, Nose, Mouth, and Throat: Denies change in voice, Denies dizziness, Reports headache(s), Denies neck pain, Denies sore throat and Denies throat swelling Cardiovascular Cardiovascular: Denies chest pain, Denies irregular heart rhythm, Denies lightheadedness, Denies palpitations, Denies dyspnea, Denies dyspnea on exertion and Denies orthopnea Respiratory Respiratory: Denies cough, Denies dyspnea, Denies dyspnea on exertion and Denies wheezing Gastrointestinal Gastrointestinal: Denies abdominal pain, Denies change in bowel habits, Denies diarrhea, Reports nausea and Denies vomiting Musculoskeletal Musculoskeletal: Denies neck pain and Denies numbness Integumentary/Breasts Skin/Breast: Denies pruritus, Denies erythema, Denies rash and Denies wounds Neurologic Neurologic: Denies behavioral changes, Denies confusion, Denies dizziness, Denies frequent falls, Reports headache(s), Denies loss of vision, Denies numbness and Denies weakness Psychiatric Psychiatric: Denies anxiety, Denies behavioral changes, Denies confusion, Denies depression, Denies homicidal ideation and Denies suicidal ideation Endocrine Endocrine: Reports fatigue, Denies flushing and Denies palpitations Hematologic/Lymphatic Hematologic/Lymphatic: Denies easy bruising Allergic/Immunologic Allergic/Immunologic: Denies urticaria, Denies throat swelling and Denies wheezing Patient History Medical History Bipolar disorder Surgical History History of cholecystectomy History of Pat fundoplication Social History Smoking Status: Current every day smoker Smoking Status: Current every day smoker tobacco type: vaping Exam Narrative Exam Narrative: Const General:?cooperative, healthy appearing and comfortable [facility] Head:?normal to inspection Ears:?hearing grossly normal bilaterally Nose:?external nose normal Face and sinus:?normal facial exam and sinuses nontender Mouth:?oral mucosae normal Throat:?posterior oropharynx normal Eyes General:?appearance normal, both eyes and all related structures Neck Neck:?normal visual inspection and no lymphadenopathy noted Resp Effort & Inspection:?normal respiratory effort Auscultation:?clear to auscultation bilaterally Cardio Rate:?regular rate Rhythm:?regular rhythm Neuro General:?patient alert, patient awake and patient oriented x3; PERRLA; CN 2-12 intact bilaterally; gait normal; neurologically intact Initial Vital Signs Initial Vital Signs: Vital Signs Temperature 98.5 F 02/01/25 10:17 Pulse Rate 88 02/01/25 10:17 Respiratory Rate 18 02/01/25 10:17 Blood Pressure 125/78 02/01/25 10:17 Pulse Oximetry 100 02/01/25 10:17 Oxygen Delivery Method Room Air 02/01/25 10:17 Course Orders Ordered: Discontinued Medications Dexamethasone (Dexamethasone 10 Mg/Ml Vial) 10 mg IV NOW ONE Stop: 02/01/25 11:57 Last Admin: 02/01/25 12:18 Dose: 10 mg Documented By: YOLANDA Diphenhydramine HCl (Diphenhydramine 50 Mg/Ml Vial) 25 mg IV NOW ONE Stop: 02/01/25 11:57 Last Admin: 02/01/25 12:18 Dose: 25 mg Documented By: YOLANDA Acetaminophen (Ofirmev) 1,000 mg in 100 mls @ 400 mls/hr IV NOW ONE Stop: 02/01/25 12:10 Last Infusion: 02/01/25 12:50 Dose: Infused Documented By: Admin: 02/01/25 12:17 Dose: 400 mls/hr Documented By: RL Sodium Chloride (Normal Saline 0.9%) 1,000 mls @ 1,000 mls/hr IV BOLUS ONE Stop: 02/01/25 13:00 Last Infusion: 02/01/25 12:50 Dose: Infused Documented By: Admin: 02/01/25 12:18 Dose: 1,000 mls/hr Documented By: YOLANDA Metoclopramide HCl (Metoclopramide 10 Mg/2 Ml Inj) 10 mg IV NOW ONE Stop: 02/01/25 11:57 Last Admin: 02/01/25 12:18 Dose: 10 mg Documented By: YOLADNA Vital Signs Vital signs: Vital Signs - 8 hr 02/01/25 12:51 Pulse Rate 71 Respiratory Rate 16 Blood Pressure 115/67 Pulse Oximetry 99 Oxygen Delivery Method Room Air MDM - Headache MDM Narrative Medical decision making narrative: 35-year-old male presents to the ED with symptoms of postconcussion syndrome including headache, nausea, fatigue, brain fog. Patient's symptoms are most consistent with postconcussive syndrome. Counseled patient on concussions, the importance of avoiding further head injuries since repeated concussions can take much longer to heal. Recommend physical and cognitive rest. Recommend taking some time off from work. Recommend Tylenol for pain control. Patient was given Tylenol, Reglan, Benadryl, dexamethasone, IV fluids in the ED with good relief. Recommend follow-up with PCP as soon as possible. ED return precautions were discussed with patient. Patient verbalized understanding. Medical records reviewed: Yes Discharge Plan Departure Patient Disposition: Home Clinical Impression: Postconcussion syndrome Closed head injury Qualifiers: Encounter type: subsequent encounter Qualified Code(s): S09.90XD - Unspecified injury of head, subsequent encounter Instructions: DI for Concussion Activity Restrictions/Additional Instructions: You were evaluated in the ED for lingering symptoms from a head injury for which you were seen a week ago. It appears that you have also had 2 additional head injuries since then. The symptoms that you are experiencing are most consistent with a postconcussive syndrome. It is common to experience headaches, nausea, sporadic vomiting, fatigue, increased sleepiness, depression, agitation. It is recommended that you take extreme care to avoid further injuries. Physical and cognitive rest are also recommended until your symptoms resolved. Cognitive rest refers to avoiding screens, reading. Please follow-up with your PCP as soon as possible for further evaluation. Return to the ED if you have worsening symptoms. Prescriptions: No Action pantoprazole 20 mg tablet,delayed release (DR/EC) 20 mg PO DAILY Qty: 30 0RF hydrocodone-acetaminophen 5-325 mg tablet 1 tab PO Q6H PRN (Reason: pain) Qty: 7 0RF sucralfate [Carafate] 1 gram tablet 1 g PO QAC Qty: 20 0RF pantoprazole [Protonix] 40 mg tablet,delayed release (DR/EC) 40 mg PO DAILY Qty: 30 0RF ondansetron 4 mg tablet,disintegrating 4 mg PO Q6H PRN (Reason: nausea and vomiting) Qty: 20 0RF Stand Alone Forms: Patient Portal/API, Work Release Note
[2025-02-01] MEDS: ACETAMINOPHEN IV 1,000 MG/100 ML VIAL 400 MG IV (12:17)
[2025-02-01] MEDS: METOCLOPRAMIDE 10 MG/2 ML INJ IV (12:18)
[2025-02-01] MEDS: diphenhydrAMINE 50 MG/ML VIAL 25 MG IV (12:18)
[2025-02-01] MEDS: DEXAMETHASONE 10 MG/ML VIAL IV (12:18)
[2025-02-01] MEDS: SODIUM CHLORIDE 0.9% 1,000 ML 1000 ML IV (12:18)
--- NOTE | 2025-02-01 12:50 | PC.NURSE ---
Patient requesting to leave, [facility] at home. Notified provider and concerns about recent administration of IV benadryl. Concerns noted. Educated patient to be safe when driving as Benadryl is sedating, patient acknowledged teaching. Left under own power, steady gait.
[2025-02-01 12:51] VITALS: BP 115/67; PULSE 71; RESP 16; O2SAT 99
== END 2025-02-01 12:51 | disposition home or self-care (01) ==
PROVIDERS: Emergency Provider Student in an Organized Health Care Education/Training Program
DX: G44.309 Post-traumatic headache, unspecified, not intractable (principal); F07.81 Postconcussional syndrome
CPT/HCPCS: 96365; 96375; 99283; 99284; J0131; J1100; J1200; J2765